=== PATIENT | female | born 1980 | race Two or more races ===

== ENCOUNTER 2024-01-12 05:30 | Day surgery (SDC) | payer OTHER ==
[~2024-01-12] VITALS: Ht 152.4 cm; Wt 61.2 kg
[~2024-01-12 05:30] MED LIST: MULTIPLE VITAM1 EAC2 PO
[2024-01-12] MEDS ORDERED: CEFAZOLIN SODIUM 1,000 MG VIAL ONE (06:47)
[2024-01-12] MEDS ORDERED: POVIDONE-IODINE 118 ML BOTT TOP ONE (07:12)
[2024-01-12] MEDS ORDERED: ONDANSETRON HCL 2 MG/ML VIAL ONE (09:22)
== END 2024-01-12 13:20 | disposition home or self-care (01) ==
LOC: CIR.AMB 05:30
PROVIDERS: ATTEND Obstetrics & Gynecology
DX: N84.0 Polyp of corpus uteri (principal); R93.5 Abnormal findings on diagnostic imaging of other abdominal regions, including retroperitoneum; Z88.6 Allergy status to analgesic agent; I49.9 Cardiac arrhythmia, unspecified